=== PATIENT | female | born 1975 | race American Indian/Alaskan Native ===

== ENCOUNTER 2018-09-02 06:28 | Inpatient (IN) | payer MEDICAID ==
[2018-09-02] MEDS ORDERED: LACTATED RINGERS 2,000 ML ONE (06:57)
[2018-09-02] MEDS ORDERED: BICITRA ONE (07:05)
[2018-09-02] MEDS ORDERED: PITOCin/NS 20 UNIT/1000ML DRIP 40,000 MILLIUNITS/2,000 ML BAG IV ONE (07:05)
[2018-09-02] MEDS ORDERED: REGLAN ONE (07:06)
[2018-09-02] MEDS ORDERED: PEPCID IV ONE (07:06)
[2018-09-02] MEDS ORDERED: ANCEF/STERILE WATER 2 GM/20 ML 2 GM/20 ML SYRINGE IV ONE (07:06)
[2018-09-02 07:33] LABS: Basophils % (Auto) 0.3 % (0.0-1.8); Eosinophils # (Auto) 0.1 K/mm3 (0.0-0.4); Eosinophils % (Auto) 2.3 % (0.0-4.3); Hematocrit 39.2 % (30.3-42.9); Hemoglobin 13.1 gm/dl (10.1-14.3); Lymphocytes # (Auto) 1.6 K/mm3 (1.2-5.4); Lymphocytes % (Auto) 27.8 % (13.4-35.0); Mean Corpuscular HGB Conc 33 % (30-34); Mean Corpuscular Volume 85 fl (79-97); Monocytes # (Auto) 0.4 K/mm3 (0.0-0.8); Monocytes % (Auto) 7.2 % (0.0-7.3); Platelet Count 122 K/mm3 (140-440); Red Blood Count 4.62 M/mm3 (3.65-5.03); Red Cell Distribution Width 16.5 % (13.2-15.2)
[2018-09-02] MEDS ORDERED: REGLAN IV NR (08:00)
[2018-09-02] MEDS ORDERED: LACTATED RINGERS 1,000 ML IV SCH (08:00)
[2018-09-02] MEDS ORDERED: PEPCID IV NR (08:00)
[2018-09-02] MEDS ORDERED: ANCEF/STERILE WATER 2 GM/20 ML 2 GM/20 ML SYRINGE IV NR (08:00)
[2018-09-02] MEDS ORDERED: BICITRA PO NR (08:00)
--- NOTE | 2018-09-02 09:03 | Anesthesia Consultation ---
Anesthesia Consult and Med Hx Date of service: 09/02/18 - Airway Anesthetic Teeth Evaluation: Good (some missing teeth) ROM Head & Neck: Adequate Mental/Hyoid Distance: Adequate Mallampati Class: Class III Intubation Access Assessment: Possibly Difficult - Pre-Operative Health Status ASA Pre-Surgery Classification: ASA3 Proposed Anesthetic Plan: Epidural, Spinal - Pulmonary Hx Smoking: No Hx Asthma: No SOB: No COPD: No Hx Pneumonia: No Hx Sleep Apnea: No - Cardiovascular System Hx Hypertension: Yes (chronic HTN) Hx Coronary Artery Disease: No Hx Heart Attack/AMI: No Hx Angina: No Hx Percutaneous Transluminal Coronary Angioplasty (PTCA): No Hx Pacemaker: No Hx Internal Defibrillator: No Hx Valvular Heart Disease: No Hx Heart Murmur: No Hx Peripheral Vascular Disease: No - Central Nervous System Hx Seizures: No CVA: No Hx Back Pain: No Hx Psychiatric Problems: No - Gastrointestinal Hx Ulcer: No Hx Gastroesophageal Reflux Disease: No - Endocrine Hx Renal Disease: No Hx End Stage Renal Disease: No Hx Cirrhosis: No Hx Liver Disease: No Hx Hypothyroidism: No Hx Hyperthyroidism: No - Hematic Hx Anemia: Yes Hx Sickle Cell Disease: No - Other Systems Hx Alcohol Use: No Hx Substance Use: No Hx Cancer: Yes (grandfather, liver cancer) Hx Obesity: Yes (morbid BMI 45.7)
--- NOTE | 2018-09-02 09:04 | Anesthesia Day of Surgery ---
Anesthesia Day of Surgery - Day of Surgery Patient Examined: Yes Patient H&P Reviewed: Yes Patient is NPO: Yes Beta Blockers: Yes
--- NOTE | 2018-09-02 09:25 | History and Physical Report ---
History of Present Illness Date of examination: 09/02/18 Date of admission: 09/02/18 06:28 Chief complaint: Repeat C Section History of present illness: Pt is a 42yo BF EDC 09/23/18; EGA 37 0/7 weeks presents for a Repeat C Section per [facility] due to previous C Section, previous myomectomy, chronic hypertension and AMA. She received care at [facility] and co-managed by [facility]. records are available and GBS is Negative. Past History Past Medical History: hypertension Past Surgical History: section, myomectomy [employer] History: fibroids, herpes Family/Genetic History: diabetes, heart disease, hypertension, stroke Social history: no significant social history, single - Obstetrical History Expected Date of Delivery: 09/23/18 Actual Gestation: 37 Week(s) 0 Day(s) : 4 Medications and Allergies Allergies Allergy/AdvReac Type Severity Reaction Status Date / Time No Known Allergies Allergy Verified 11/12/15 09:36 Home Medications Medication Instructions Recorded Confirmed Last Taken Type Vit-Fe Fumar-FA [ 1 each PO QDAY #30 tablet 10/26/13 11/22/15 11/18/15 Rx Vitamin] Labetalol [Normodyne TAB] 100 mg PO BID 11/15/15 11/22/15 11/18/15 History Ferrous Sulfate [Feosol 325 MG tab] 325 mg PO BID #60 tablet 11/19/15 Unknown Rx HYDROcodone/APAP 5-325 [[place] 1 each PO Q6HR PRN #30 tablet 11/19/15 Unknown Rx 5/325] Ibuprofen [Motrin] 800 mg PO Q8HR PRN #30 tablet 11/19/15 Unknown Rx Vit Calc,Iron,Folic 1 each PO DAILY #30 tablet 11/19/15 Unknown Rx [ Vitamins] Active Meds: Active Medications Citric Acid/Sodium Citrate (Bicitra) 30 ml PO ONCE NR Stop: 09/02/18 17:00 Diphenhydramine HCl (Benadryl) 12.5 mg IV Q2H PRN PRN Reason: Itching Famotidine (Pepcid) 20 mg IV ONCE NR Stop: 09/02/18 17:00 Hydromorphone HCl (Dilaudid) 0.5 mg IV Q5M PRN PRN Reason: Breakthrough Pain Hydromorphone HCl (Dilaudid) 0.5 mg IV Q4H PRN PRN Reason: breakthrough pain > 7/10 Cefazolin Sodium (Ancef/Sterile Water 2 Gm/20 Ml) 2 gm in 20 mls @ 80 mls/hr IV PREOP NR; Protocol Stop: 09/02/18 17:00 Lactated Ringer's (Lactated Ringers) 1,000 mls @ 2,250 mls/hr IV PREOP CATARINO Stop: 09/03/18 08:27 Oxytocin/Sodium Chloride (Pitocin/Ns 20 Unit/1000ml Drip) 20 units in 1,000 mls @ 0 mls/hr IV TITR CATARINO Ketorolac Tromethamine (Toradol) 30 mg IV Q6H PRN PRN Reason: Pain, Moderate (4-6) Stop: 09/07/18 09:04 Metoclopramide HCl (Reglan) 10 mg IV ONCE NR Stop: 09/02/18 17:00 Naloxone HCl (Narcan 0.4 Mg/1 Ml) 0.2 mg IV Q2MIN PRN PRN Reason: Res Rate </= 8 or 02 SAT < 92% Ondansetron HCl (Zofran) 4 mg IV Q8H PRN PRN Reason: Nausea And Vomiting Promethazine HCl (Phenergan) 25 mg PO Q6H PRN PRN Reason: Nausea And Vomiting Promethazine HCl (Phenergan) 25 mg [place] Q6H PRN PRN Reason: Nausea And Vomiting Sodium Chloride (Sodium Chloride Flush Syringe 10 Ml) 10 ml IV PRN NR Review of Systems All systems: negative - Vital Signs Vital signs: Vital Signs Temp Pulse Resp BP 98.2 F 93 H 18 191/93 09/02/18 06:51 09/02/18 06:51 09/02/18 06:51 09/02/18 06:51 Temp Pulse Resp BP Pulse Ox 98.2 F 80 18 171/81 09/02/18 06:51 09/02/18 09:22 09/02/18 06:51 09/02/18 09:22 - Physical Exam Breasts: Positive: deferred Cardiovascular: Regular rate Abdomen: Positive: normal appearance, soft Genitourinary (Female): Positive: normal external genitalia Uterus: Positive: enlarged Extremities: Positive: normal - Obstetrical FHR: category 1 Uterine Contraction Monitor Mode: External Uterine Contraction Pattern: Absent Results Result Diagrams: 09/02/18 06:50 Abnormal lab results 09/02/18 Range/Units 06:50 RDW 16.5 H (13.2-15.2) % Plt Count 122 L (140-440) K/mm3 All other labs normal. Assessment and Plan - Patient Problems (1) 37 weeks gestation of Onset Date: 09/02/18 Current Visit: Yes Status: Acute Plan to address problem: A: IUP @ 37 0/7 weeks Previous C Section Previous myomectomy Chronic hypertension Morbid obesity AMA Anti-e antibody P: Admit for a Repeat C Section (2) Previous section complicating , antepartum condition or complication Onset Date: 09/02/18 Current Visit: Yes Status: Chronic (3) Hypertension affecting Onset Date: 09/02/18 Current Visit: No Status: Acute Qualifiers: Trimester: third trimester Qualified Code(s): O16.3 - Unspecified maternal hypertension, third trimester (4) Morbid obesity Onset Date: 09/02/18 Current Visit: No Status: Chronic (5) Status post myomectomy Onset Date: 12/08/13 Current Visit: No Status: Chronic
[2018-09-02] MEDS ORDERED: NARCAN 0.4 MG/1 ML IV PRN ×2 (10:00→11:39)
[2018-09-02] MEDS ORDERED: DILAUDID IV PRN ×2 (10:00)
[2018-09-02] MEDS ORDERED: ZOFRAN IV PRN (10:00)
[2018-09-02] MEDS ORDERED: PHENERGAN PO PRN (10:00)
[2018-09-02] MEDS ORDERED: PHENERGAN PR PRN (10:00)
[2018-09-02] MEDS ORDERED: BENADRYL IV PRN (10:00)
[2018-09-02] MEDS ORDERED: SODIUM CHLORIDE FLUSH SYRINGE 10 ML IV PRN (10:00)
[2018-09-02] MEDS ORDERED: ANCEF/STERILE WATER 2 GM/20 ML IV ONE (10:34)
[2018-09-02] MEDS ORDERED: NACL 0.9% IR ONE (10:45)
[2018-09-02] MEDS ORDERED: WATER FOR IRRIG STERILE IR ONE (10:45)
[2018-09-02] MEDS: PITOCin/NS 20 UNIT/1000ML DRIP 20 UNITS/1,000 ML BAG IV SCH ×2 (10:53→12:39)
[2018-09-02] MEDS ORDERED: NEO SYNEPHRINE/NS Syringe(OR USE) IV ONE (11:01)
[2018-09-02] MEDS ORDERED: ASTRAMORPH PF 10MG/10ML ONE (11:02)
--- NOTE | 2018-09-02 11:36 | Operative Report ---
Operative Report Operative Report: Date of procedure: 09/02/2018 Pre-operative diagnosis: 1. Intrauterine at 37-0/7 weeks 2. Previo us 3. Previous myomectomy 4. Chronic hypertension 5. Morbid obesity 6. Advanced maternal age Post-operative diagnosis: Same Procedure name(s): Repeat low transverse section Surgeon: John Hood MD Machine Room Engineer: None Anesthesia: Spinal anesthesia by Dr. Suárez EBL: 900 mL Findings: A 2731 g male Apgars 8 at 1 minute 9 at 5 minutes. Clear amniotic fluid. Normal uterus with uterine fibroids and lower uterine segment adhesions. Normal tubes and ovaries bilaterally. Procedure: After the patient was prepped and draped in usual sterile fashion, and after satisfactory level of epidural anesthesia was obtained, the skin knife was used to make a transverse skin incision through the previous skin scars. The incision was excised down to layer of the fascia, which was nicked in the midline and extended laterally using the Bovie cautery. The rectus muscles were dissected off the rectus fascia both superiorly and inferiorly. The rectus bellies in the midline, and the peritoneum was entered under direct visualization. The peritoneal incision was extended superiorly and inferiorly. A bladder flap was created and the bladder blade was then placed. The uterus was scored in a curvilinear linear fashion, entered in the midline revealing clear amniotic fluid. The infant's head was delivered onto the surgical field with the aid of a vacuum, and the oropharynx and nasopharynx were bulb suctioned. The rest of the infant's body was delivered, cord was doubly clamped and cut and the was handed to the waiting respiratory team. Cord blood was then obtained. The placenta was manually removed from the uterus, but the uterus did not be removed from its normal anatomical position. After gentle uterine lavage, the incision was inspected and found to be without extensions. It was then closed in 2 layers using 0 Vicryl suture in a running interlocking fashion, the second layer imbricating the first. After good hemostasis was achieved, copious amounts or irrigation was performed, and the gutters were suctioned free of blood and blood clots. The Tisseel sealant was sprayed across the uterine incision, and after excellent hemostasis assured, the peritoneum was re-approximated using 3-0 Vicryl suture in a running interlocking fashion, and then the rectus muscles were re-approximated using 3-0 Vicryl suture in a figur e-of-eight configuration. The fascia was then re-approximated using 0 Vicryl suture in running interlocking fashion. The subcutaneous layer was made hemostatic using Bovie cautery, the Tisseel sealant was sprayed across the fascial incision and the skin edges re-approximated using 4-0 Vicryl suture in a sub-cuticular fashion. Patient tolerated the procedure well was transported to recovery in stable condition.
[2018-09-02] MEDS ORDERED: SENOKOT PO PRN (11:39)
[2018-09-02] MEDS ORDERED: TUCKS PAD TP PRN (11:39)
[2018-09-02] MEDS ORDERED: TYLENOL PO PRN (11:39)
[2018-09-02] MEDS ORDERED: PERCOCET 5/325 PO PRN (11:39)
[2018-09-02] MEDS ORDERED: LANSINOH TP PRN (11:39)
[2018-09-02] MEDS ORDERED: D5LR 1,000 ML IV SCH (12:00)
[2018-09-02] MEDS ORDERED: PITOCin/NS 20 UNIT/1000ML DRIP 20 UNITS/1,000 ML BAG IV SCH (12:00)
[2018-09-02] MEDS ORDERED: SODIUM CHLORIDE FLUSH SYRINGE 10 ML IV NR (12:00)
[2018-09-02] MEDS: TORADOL IV PRN ×2 (12:38→23:53)
--- NOTE | 2018-09-02 17:24 | Post Anesthesia Evaluation ---
- Post Anesthesia Evaluation Patient Participated: Yes Airway Patent: Yes Stable Respiratory Function: Yes Nausea/Vomiting: No Temp > 96.8F: Yes Pain Manageable: Yes Adequeate Hydration: Yes Anesthesia Complications: No Block Receding Appropriately: Yes Patient on Ventilator: No
[2018-09-02] MEDS: ANCEF/NS 1 GM/50 ML 1 GM/50 ML BAG IV SCH (20:52)
[2018-09-03] MEDS: ANCEF/NS 1 GM/50 ML 1 GM/50 ML BAG IV SCH (05:00)
[2018-09-03] MEDS ORDERED: NORMODYNE PO ONE (05:15)
[2018-09-03] MEDS ORDERED: M-M-R II VACCINE SUB-Q ONE (06:00)
[2018-09-03] MEDS ORDERED: BOOSTRIX IM ONE (06:00)
--- NOTE | 2018-09-03 10:08 | Progress Note ---
Assessment and Plan - Patient Problems (1) 37 weeks gestation of Onset Date: 09/02/18 Current Visit: Yes Status: Resolved (2) Previous section complicating , antepartum condition or complication Onset Date: 09/02/18 Current Visit: Yes Status: Resolved (3) Hypertension affecting Onset Date: 09/02/18 Current Visit: No Status: Chronic Qualifiers: Trimester: third trimester Qualified Code(s): O16.3 - Unspecified maternal hypertension, third trimester (4) Morbid obesity Onset Date: 09/02/18 Current Visit: No Status: Chronic (5) Status post myomectomy Onset Date: 12/08/13 Current Visit: No Status: Resolved (6) Status post Onset Date: 09/03/18 Current Visit: Yes Status: Resolved Plan to address problem: A: S/P Repeat C Section - POD #1 Doing well Chronic hypertension - stable on Labetolol 200mg BID P: Continue RPOC Advance diet as tolerated Anticipate discharge in 24-48hrs Subjective - Subjective Date of service: 09/03/18 Principal diagnosis: s/p Repeat C Section - POD #1 Interval history: Pt is feeling well without complaints. She is tolerating a liquid diet without nausea or vomiting, ambulating and voiding without difficulty. Patient reports: appetite normal, voiding normally, pain well controlled, flatus, ambulating normally, no dizzy ambulation, no nauseated : doing well, nursing well Objective - Vital Signs Latest vital signs: Vital Signs Temp Pulse Resp BP BP Pulse Ox 09/03/18 05:01 84 145/84 09/03/18 04:58 98.8 F 85 20 145/84 96 09/03/18 03:32 97.7 F 71 18 156/78 96 09/02/18 23:46 97.6 F 92 H 20 148/86 93 09/02/18 20:38 98.0 F 74 16 143/71 95 09/02/18 16:33 97.6 F 78 20 147/65 95 09/02/18 12:40 97.6 F 68 16 148/82 98 09/02/18 12:25 65 14 149/78 97 09/02/18 12:10 69 14 150/79 97 09/02/18 12:05 67 12 152/82 98 09/02/18 12:00 63 16 143/73 97 09/02/18 11:55 68 15 142/86 99 09/02/18 11:50 65 14 148/82 100 09/02/18 11:45 64 16 150/78 100 09/02/18 11:40 97.9 F 62 18 142/78 98 Intake and Output 09/02/18 09/03/18 09/03/18 22:59 06:59 14:59 Output Total 200 1100 Balance -200 -1100 Output: Urine 200 1100 Indwelling Catheter 200 800 Void 300 Other: Total, Output Amount 200 300 - Exam Breasts: Present: deferred Abdomen: Present: normal appearance, soft Uterus: Present: normal, firm, fundal height below umbilicus Extremities: Present: normal Incision: Present: normal, dry, intact, dressed - Labs Labs: Laboratory Tests 09/02/18 09/02/18 09/02/18 06:50 06:50 06:50 WBC 5.7 RBC 4.62 Hgb 13.1 Hct 39.2 MCV 85 MCH 28 MCHC 33 RDW 16.5 H Plt Count 122 L Lymph % (Auto) 27.8 [place] % (Auto) 7.2 Eos % (Auto) 2.3 Baso % (Auto) 0.3 Lymph # 1.6 [place] # 0.4 Eos # 0.1 Baso # 0.0 Seg Neutrophils % 62.4 Seg Neutrophils # 3.6 RPR Nonreactive Blood Type O POSITIVE Antibody Screen Positive Antibody Identification Anti-E 09/02/18 23:23 WBC RBC Hgb 11.0 Hct 33.0 D MCV MCH MCHC RDW Plt Count Lymph % (Auto) [place] % (Auto) Eos % (Auto) Baso % (Auto) Lymph # [place] # Eos # Baso # Seg Neutrophils % Seg Neutrophils # RPR Blood Type Antibody Screen Antibody Identification
[2018-09-03] MEDS: FEOSOL PO SCH (11:07)
[2018-09-03] MEDS: NORMODYNE PO SCH ×2 (11:07→22:40)
[2018-09-03] MEDS: MYLICON PO PRN (11:08)
[2018-09-03] MEDS: PRENATAL VITAMIN PO SCH (11:08)
[2018-09-03] MEDS: IBUPROFEN PO PRN (20:18)
[2018-09-03] MEDS: MILK OF MAGNESIA PO PRN (22:35)
--- NOTE | 2018-09-04 10:26 | Progress Note ---
Assessment and Plan - Patient Problems (1) 37 weeks gestation of Onset Date: 09/02/18 Current Visit: Yes Status: Resolved (2) Previous section complicating , antepartum condition or complication Onset Date: 09/02/18 Current Visit: Yes Status: Resolved (3) Hypertension affecting Onset Date: 09/02/18 Current Visit: No Status: Chronic Qualifiers: Trimester: third trimester Qualified Code(s): O16.3 - Unspecified maternal hypertension, third trimester (4) Morbid obesity Onset Date: 09/02/18 Current Visit: No Status: Chronic (5) Status post myomectomy Onset Date: 12/08/13 Current Visit: No Status: Resolved (6) Status post Onset Date: 09/03/18 Current Visit: Yes Status: Resolved Plan to address problem: A: S/P Repeat C Section - POD #2 Doing well Chronic hypertension - stable on Labetolol 200mg BID P: May go home tomorrow. Subjective - Subjective Date of service: 09/04/18 Principal diagnosis: s/p Repeat C Section - POD #2 Interval history: Pt is feeling well without complaints. She is tolerating a reg diet without nausea or vomiting, ambulating and voiding without difficulty. Patient reports: appetite normal, voiding normally, pain well controlled, flatus, ambulating normally, no dizzy ambulation, no nauseated [place]: doing well, bottle feeding Objective - Vital Signs Latest vital signs: Vital Signs Temp Pulse Resp BP Pulse Ox 09/04/18 09:45 98.2 F 89 28 H 144/77 97 09/03/18 23:42 98.3 F 95 H 17 112/72 98 09/03/18 22:40 84 144/76 09/03/18 20:18 18 09/03/18 16:48 98.4 F 110 H 20 121/75 97 09/03/18 11:07 88 124/64 Intake and Output 09/03/18 09/04/18 09/04/18 21:59 06:59 14:59 Intake Total Balance Intake: Oral Other: Total, Intake Amount # Voids Void # Bowel Movements - Exam Abdomen: Present: normal appearance, soft Uterus: Present: normal, firm, fundal height below umbilicus Extremities: Present: normal Incision: Present: normal, dry, intact
[2018-09-04] MEDS: NORMODYNE PO SCH ×2 (10:56→21:37)
[2018-09-04] MEDS: PRENATAL VITAMIN PO SCH (11:00)
[2018-09-04] MEDS: FEOSOL PO SCH (11:00)
[2018-09-04] MEDS: IBUPROFEN PO PRN (15:30)
[2018-09-05] MEDS: MYLICON PO PRN (01:49)
[2018-09-05] MEDS: MILK OF MAGNESIA PO PRN (01:49)
[2018-09-05] MEDS: NORCO 5/325 PO PRN ×2 (05:32→11:44)
--- NOTE | 2018-09-05 09:47 | Discharge Summary ---
Providers - Providers Date of Admission: 09/02/18 06:28 Date of discharge: 09/05/18 Attending physician: RAHEEM DEL TORO Primary care physician: RAHEEM DEL TORO Hospitalization Reason for admission: section, IUP at term, other (Previous myomectomy; Chronic hypertension; AMA) Delivery: Procedure: section, repeat low transverse Episiotomy: none Incision: normal, dry, intact Other procedures: none complications: none baby: male Hospital course: Pt is a 42yo BF EDC 09/23/18; EGA 37 0/7 weeks who presented to [facility] for a Repeat C Section per [facility] due to previous C Section, previous myomectomy, chronic hypertension and AMA. She underwent an uncomplicated Repeat C Section and tolerated the procedure well. By POD #2 she was tolerating a reg diet without nausea or vomiting, ambulating and voiding without difficulty, and therefore was discharged to home on POD #3 in stable condition. Her BP's remained stable on Labetolol 200mg BID and she will follow up in the office in 1 week for BP check. Condition at discharge: Good Disposition: DC-01 TO HOME OR SELFCARE - Discharge Diagnoses (1) 37 weeks gestation of Status: Resolved (2) Previous section complicating , antepartum condition or complication Status: Resolved (3) Hypertension affecting Status: Chronic Qualifiers: Trimester: third trimester Qualified Code(s): O16.3 - Unspecified maternal hypertension, third trimester (4) Morbid obesity Status: Chronic (5) Status post myomectomy Status: Resolved (6) Status post Status: Resolved Plan - Discharge Medications Prescriptions: Ferrous Sulfate [Feosol 325 MG tab] 325 mg PO BID #60 tablet Ibuprofen [Motrin 800 MG tab] 800 mg PO Q6H PRN #30 tablet PRN Reason: Pain, Mild (1-3) HYDROcodone/APAP 5-325 [[place] 5-325 mg TAB] 1 each PO Q6HR PRN #30 tablet PRN Reason: Pain, Moderate (4-6) Labetalol [Normodyne TAB] 200 mg PO BID #60 tablet Vit-Fe Fumar-FA [ Vitamin] 1 each PO QDAY #30 tablet - Provider Discharge Summary Activity: routine, no sex for 6 weeks, no heavy lifting 4 weeks, no strenuous exercise Diet: routine Instructions: routine Additional instructions: [] Smoking cessation referral if applicable(refer to patient education folder for contact #) [] Refer to [facility]'s [facility] Booklet Call your doctor immediately for: * Fever > 100.5 * Heavy vaginal bleeding ( >1 pad per hour) * Severe persistent headache * Shortness of breath * Reddened, hot, painful area to leg or breast * Drainage or odor from incision. * Keep incision clean and dry at all times and follow doctor's instructions regarding bathing/showering Follow up in the office in 1 week for BP check - Follow up plan Follow up: RAHEEM DEL TORO MD [Primary Care Provider] - 7 Days
[2018-09-05] MEDS: FEOSOL PO SCH (11:33)
[2018-09-05] MEDS: NORMODYNE PO SCH (11:33)
[2018-09-05] MEDS: PRENATAL VITAMIN PO SCH (11:33)
[2018-09-05] MEDS ORDERED: M-M-R II VACCINE SUB-Q ONE (16:42)
[2018-09-05 17:02] VITALS: BP 175/85
== END 2018-09-05 17:10 | disposition home or self-care (01) | DRG 765 ==
LOC: APU 06:28 → OB 13:07
PROVIDERS: ADMIT Obstetrics & Gynecology; ATTEND Obstetrics & Gynecology
PROC: 10D00Z1 Extraction of Products of Conception, Low, Open Approach (ICD-10-PCS; principal; 2018-09-02)
PROC: 3E0234Z Introduction of Serum, Toxoid and Vaccine into Muscle, Percutaneous Approach (ICD-10-PCS; 2018-09-03)
DX: O34.211 Maternal care for low transverse scar from previous cesarean delivery (principal); O10.92 Unspecified pre-existing hypertension complicating childbirth; E66.01 Morbid (severe) obesity due to excess calories; O99.214 Obesity complicating childbirth; Z3A.37 37 weeks gestation of pregnancy; Z37.0 Single live birth; Z71.3 Dietary counseling and surveillance; Z80.8 Family history of malignant neoplasm of other organs or systems; Z83.3 Family history of diabetes mellitus; Z82.49 Family history of ischemic heart disease and other diseases of the circulatory system; Z82.3 Family history of stroke; Z79.899 Other long term (current) drug therapy; Z23 Encounter for immunization
CPT/HCPCS: 36415; 85014; 85018; 85025; 86592; 86850; 86870; 86900; 86901; 90707; G0378; C9250; J0690; J1885; J2274; J2370; J2405; J2590; J2765; J7120; J7121